=== PATIENT | male | born 1995 | race Caucasian/White ===

== ENCOUNTER 2021-07-14 06:03 | Day surgery (SDC) | payer OTHER ==
[~2021-07-14] VITALS: Ht 193 cm; Wt 115.2 kg
[~2021-07-14 06:03] MED LIST: LR 1,000 ML IV ONE; UNRESOLVED CLARIFICATION ENTRY XX SCH; ceFAZolin SOD 2 GM in IV 1 EA IV ONE
[2021-07-14] MEDS ORDERED: LIDOCAINE 1% MDV 20ML VIAL As Ordered ONE (07:08)
[2021-07-14] MEDS ORDERED: BUPIVACAINE HCL 0.5% 10ML VIAL As Ordered ONE (07:08)
[2021-07-14] MEDS ORDERED: dexameTHASONE 4 MG/ML 1ML VIAL (J1100 PER 1MG) As Ordered ONE (07:09)
[2021-07-14] MEDS ORDERED: LIDOCAINE 2% 100MG/5ML SDV (FOR ANES.) As Ordered ONE (07:17)
[2021-07-14] MEDS ORDERED: propofoL 500 MG/50 ML VIAL As Ordered ONE (07:17)
[2021-07-14] MEDS ORDERED: fentaNYL 100 MCG/2 ML INJECTION (J3010) As Ordered ONE (07:17)
[2021-07-14] MEDS ORDERED: MIDAZOLAM INJ 2MG/2ML VIAL (J2250 PER 1MG) As Ordered ONE (07:18)
[2021-07-14] MEDS ORDERED: ceFAZolin 2 GM/D5W 50 ML IV BAG (J0690 PER 500MG) As Ordered ONE (07:31)
[2021-07-14] MEDS ORDERED: ONDANSETRON 4MG/2ML VIAL As Ordered ONE (08:00)
[2021-07-14] MEDS ORDERED: METOCLOPRAMIDE INJ 10MG/2ML VIAL (J2765 PER 1) As Ordered ONE (08:00)
[2021-07-14] MEDS ORDERED: HYDR-3713 PO (09:14)
[2021-07-14] MEDS ORDERED: LR 1,000 ML IV SCH (09:35)
[2021-07-14] MEDS ORDERED: ONDANSETRON 4MG/2ML VIAL IV PRN (09:35)
[2021-07-14] MEDS ORDERED: PERCOCET 5MG/325MG TAB PO PRN (09:35)
[2021-07-14 10:02] VITALS: BP 138/79
== END 2021-07-14 10:56 | disposition home or self-care (01) ==
LOC: M SDC 06:03
PROVIDERS: ATTEND Podiatrist Foot & Ankle Surgery
DX: M20.11 Hallux valgus (acquired), right foot (principal)
CPT/HCPCS: 28297; 88300; 97116; 97161; C1713; J0690; J1100; J2250; J2405; J2765; J3010

== ENCOUNTER 2021-08-29 21:56 | Emergency (ER) | payer OTHER ==
[~2021-08-29] VITALS: Ht 193 cm; Wt 113.6 kg
[~2021-08-29 21:56] MED LIST changes: +HYDR-3713 PO; -LR 1,000 ML IV ONE; -UNRESOLVED CLARIFICATION ENTRY XX SCH; -ceFAZolin SOD 2 GM in IV 1 EA IV ONE
[2021-08-29 21:57] VITALS: BP 139/82
[2021-08-29] MEDS ORDERED: AUGMENTIN 875 MG TAB PO ONE (23:15)
[2021-08-29] MEDS ORDERED: MAGIC MOUTHWASH *ED ONLY* 5ML ORAL SYRINGE SSP ONE (23:15)
[2021-08-29] MEDS ORDERED: ANTASUS PO (23:33)
[2021-08-29] MEDS ORDERED: LIDO2SOL17 SSP (23:33)
[2021-08-29] MEDS ORDERED: AMOX875T2 PO (23:33)
[2021-08-29] MEDS ORDERED: DIPH12.531 PO (23:33)
[2021-08-29] MEDS ORDERED: VALA1TAB5 PO (23:33)
== END 2021-08-29 23:41 | disposition home or self-care (01) ==
LOC: M ED 21:56
DX: H65.93 Unspecified nonsuppurative otitis media, bilateral (principal); B00.1 Herpesviral vesicular dermatitis; R50.9 Fever, unspecified